=== PATIENT | male | born 1990 | race Caucasian/White ===

== ENCOUNTER 2021-06-05 14:03 | Emergency (ER) | payer SELFPAY ==
[2021-06-05 16:44] LABS: Bilirubin Negative (Negative); Blood, Urine Negative (Negative); Clarity Clear (Clear); Glucose, Urine (Dipstick) Normal (Negative); Ketone, Urine Negative (Negative); Leukocyte Negative Leu/uL (Negative); Nitrite Negative (Negative); Protein, Urine (Dipstick) Negative (Neg-Trace); Specific Gravity, Urine 1.004 (1.002-1.036); Urobilinogen Normal mg/dL (Less than 2); pH, Urine 6.5 (5.0-9.0)
[2021-06-05] MEDS ORDERED: Lidocaine 1% PF 5 ML VIAL ONE (17:48)
[2021-06-05] MEDS ORDERED: cefTRIAXone\\ROCEPHIN 500 MG VIAL ONE (17:48)
[2021-06-06 00:05] LABS: SARS-CoV-2 PCR by NAA DETECTED (NotDetected)
[2021-06-08 21:07] LABS: Chlam.trachomatis by PCR,Urine Not Detected (NotDetected)
== END 2021-06-05 17:53 | disposition home health service, planned readmission (86) ==
LOC: ERS 14:03
DX: U07.1 COVID-19 (principal); N34.2 Other urethritis; Z79.899 Other long term (current) drug therapy
CPT/HCPCS: 81003; 87086; 87491; 87591; 96372; J0696; U0003; U0005

== ENCOUNTER 2021-06-24 00:05 | Emergency (ER) | payer SELFPAY ==
[2021-06-24 02:18] LABS: Bilirubin Negative (Negative); Blood, Urine Negative (Negative); Clarity Clear (Clear); Glucose, Urine (Dipstick) Normal (Negative); Ketone, Urine Negative (Negative); Leukocyte Negative Leu/uL (Negative); Nitrite Negative (Negative); Protein, Urine (Dipstick) Negative (Neg-Trace); Specific Gravity, Urine 1.008 (1.002-1.036); Urobilinogen Normal mg/dL (Less than 2); pH, Urine 6.5 (5.0-9.0)
== END 2021-06-24 02:46 | disposition home or self-care (01) ==
LOC: ERS 00:05
DX: R30.0 Dysuria (principal)
CPT/HCPCS: 71045; 81003; 87086; 93005